=== PATIENT | female | born 1950 | race African-American/Black ===

== ENCOUNTER → 2020-04-13 | Outpatient (CLI) | payer MEDICARE, OTHER ==
--- NOTE | 2020-04-20 20:21 | RAD ---
DATE: 04/13/2020 EXAM: DIGITAL SCREEN BILAT W/CAD HISTORY: Screening COMPARISON: 03/24/2019, 11/05/2017 This study was interpreted with the benefit of Computerized Aided Detection (CAD). Breast Density: SCATTERED The breast parenchyma shows scattered fibroglandular densities. Breast parenchyma level B. FINDINGS: No suspicious mass, calcification, or architectural distortion in either breast. IMPRESSION: No evidence of malignancy. BI-RADS CATEGORY: 1 NEGATIVE RECOMMENDED FOLLOW-UP: 12M 12 MONTH FOLLOW-UP PQRS compliance statement: Patient information was entered into a reminder system with a target due date for the next mammogram. Mammography is a sensitive method for finding small breast cancers, but it does not detect them all and is not a substitute for careful clinical examination. A negative mammogram does not negate a clinically suspicious finding and should not result in delay in biopsying a clinically suspicious abnormality. "Our facility is accredited by the [employer] Mammography Program."
== END ==
LOC: MAMMO 09:03
PROVIDERS: ATTEND Family Medicine
DX: Z12.31 Encounter for screening mammogram for malignant neoplasm of breast (principal)
CPT/HCPCS: 77067

== ENCOUNTER → 2020-07-15 | Outpatient (CLI) | payer MEDICARE, OTHER ==
[~2020-07-15] MED LIST: IOHEXOL 350 MG/ML 100 ML VIAL. IV ONE
--- NOTE | 2020-07-15 08:33 | RAD ---
US BILATERAL LOWEREXTREMITY VENOUS DOPPLER History: Reason: BLE SWELLING, ELEVATED D-DIMER / Spl. Instructions: / History: Comparison: None. Discussion: Multiple longitudinal and transverse high resolution real-time images of the venous system of [facility] lower extremity were obtained with color and Doppler sampling. Degraded evaluation due to patient body habitus. Bilateral distal superficial femoral and calf veins not well seen. No definite deep vein thrombosis bilaterally. Impression: 1. Degraded evaluation. No definite evidence of deep vein thrombosis. Electronically signed by: Yomi Huntley DO (07/15/2020 8:30 AM) [id number]
--- NOTE | 2020-07-15 09:40 | RAD ---
Study: CT CHEST WITH CONTRAST - PULMONARY ANGIOGRAM History: Elevated d-dimer, dyspnea upon exertion Comparison: None Technique: Helical CT of the chest performed after the administration of intravenous contrast and ti med for angiographic evaluation of the pulmonary arteries per PE protocol. Coronal and sagittal 3D OR P reformations were obtained. One or more of the following individualized dose reduction techniques were utilized for this examinat ion: 1. Automated exposure control 2. Adjustment of the mA and/or kV according to patient size 3. Use of iterative reconstruction technique. Findings: Pulmonary Arteries: Contrast bolus is adequate. There is no acute pulmonary embolism. And pulmonary a rteries at its mildly enlarged.. Heart/Systemic Vasculature: The heart is normal in size. No pericardial effusion. Thoracic aorta is n ormal in caliber. There are coronary artery and aortic calcifications. Cannot evaluate the thoracic a kenneth for dissection due to phase of contrast. Mediastinum: There is no mediastinal or hilar lymphadenopathy. There are calcified subcarinal lymph n odes. Lungs: There are scattered pulmonary nodules. There is a 4 mm pulmonary nodule in the right upper lob e (image 55) there is a 3 mm subpleural pulmonary nodule in the right upper lobe (image 51). 3 mm pul monary nodule in the right middle lobe (image 62). There is a calcified granuloma in the left upper l obe. 4 mm pulmonary nodule in the left lower lobe (image 59). The lungs are otherwise clear. There is mild mosaic attenuation may indicate mild air trapping. No pleural effusion. The central airways are clear. Neck/Axilla/Body Wall: The thyroid gland is enlarged and there is a hypodense nodule involving the le ft thyroid lobe and isthmus measuring approximately 3.8 x 3.2 cm. No axillary lymphadenopathy. Visual ized portion of the breasts are symmetric in appearance. Upper Abdomen: There are surgical changes of cholecystectomy. Bones: No acute osseous abnormality. IMPRESSION: 1. No acute pulmonary embolism or other acute cardiac pulmonary abnormality. 2. Mildly enlarged main pulmonary artery, which can be seen with pulmonary arterial hypertension. Cor onary artery calcifications. 3. There are few small bilateral pulmonary nodules measuring up to 4 mm. In a high risk patient, opti onal twelve-month follow-up CT could be obtained to ensure stability per Fleischner Society guideline s. 4. Enlarged thyroid gland with 3.8 cm hypodense nodule involving the left thyroid lobe and isthmus. R ecommend dedicated thyroid ultrasound to further evaluate. Electronically signed by: Jamila Lowry MD (07/15/2020 9:38 AM) [id number]
== END ==
LOC: US 07:39
PROVIDERS: ATTEND Family Medicine
DX: R91.1 Solitary pulmonary nodule (principal); R79.1 Abnormal coagulation profile; I51.7 Cardiomegaly; E04.1 Nontoxic single thyroid nodule; Z90.49 Acquired absence of other specified parts of digestive tract
CPT/HCPCS: 71275; 93970; Q9967

== ENCOUNTER → 2020-08-11 | Outpatient (CLI) | payer MEDICARE ==
--- NOTE | 2020-08-11 08:32 | RAD ---
EXAMINATION: US THYROID INDICATION: 69 years, Female, thyroid nodule. COMPARISON: CT dated 07/15/2020 Technique: Real-time grayscale and color Doppler imaging of the thyroid gland was performed per lazara col. Findings: The right thyroid lobe measures: 4.5 x 1.8 x 1.6 cm. The left thyroid lobe measures: 6.2 x 3.0 x 3.2 cm. The isthmus measures: 1.5 cm. Estimated total number of nodules >/= 1cm: 2 Number of spongiform nodules >/= 2cm not described below (TR1): 0 Nodule #1: Maximum size: 4.3 cm Location: Mid/lower pole left thyroid lobe extends to the isthmus Composition: Solid or almost completely solid (2) Echogenicity: Hyperechoic or isoechoic (1 point) Shape: [id number] (0 points) Margins: Lobulated or irregular (2 points) Echogenic foci: None or large comet-tail artifacts (0 points) ACR TI-RADS total points: 5. ACR TI-RADS risk category: TR4 (4-6 points) - Moderately suspicious. FNA if ?1.5 cm. Follow if ?1 cm. Nodule #2: Maximum size: 1.6 cm Location: Mid/upper pole right thyroid lobe Composition: Solid or almost completely solid (2) Echogenicity: Hyperechoic or isoechoic (1 point) Shape: Nxhea-[id number]-[id number] (0 points) Margins: Ill-defined (0 points) Echogenic foci: None or large comet-tail artifacts (0 points) ACR TI-RADS total points: 3. ACR TI-RADS risk category: TR3 (3 points) - Mildly suspicious. FNA if ?2.5 cm. Follow if ?1.5 cm. IMPRESSION: 1. Left 4.3 cm solid thyroid nodule meets TI-RADS criteria for fine-needle aspiration. 2. The 1.6 cm mid/upper pole right thyroid lobe nodule meets TI-RADS criteria for follow-up in one ye ar. ACR TI-RADS recommendations TR5 (?7 points) - FNA if ? 1cm, follow-up if 0.5 - 0.9 cm every year for 5 years TR4 (4-6 points) - FNA if ? 1.5cm, follow-up if 1 - 1.4 cm in 1, 2, 3 and 5 years TR3 (3 points)- FNA if ? 2.5cm, follow-up if 1.5 - 2.4 cm in 1, 3 and 5 years TR2 (2 points) & TR1 (0 points) - No FNA or follow-up *Decision to biopsy should include other considerations such as patient demographics and relevant cli nical information. Reference: TIRADS 2017 J Am Dodie Radiol 2017;14:587-595 Electronically signed by: Ayden Lewis MD (08/11/2020 8:30 AM) [id number]
== END ==
LOC: US 07:45
PROVIDERS: ATTEND Family Medicine
DX: E04.1 Nontoxic single thyroid nodule (principal)
CPT/HCPCS: 76536

== ENCOUNTER → 2020-09-29 | Outpatient (CLI) | payer SELFPAY ==
[~2020-09-29] MED LIST changes: +CYCL-331 PO; -IOHEXOL 350 MG/ML 100 ML VIAL. IV ONE
--- NOTE | 2020-09-29 10:01 | RAD ---
US DPLX VENOUS EXTREMITY UPPER LT History: Reason: LEFT ARM SWELLING/ PAIN / Spl. Instructions: / History: Comparison: None. Procedure: Color flow Doppler, Doppler spectral analysis, and 2D images are obtained with and without compression in the jugular vein, subclavian vein, axillary vein, brachial vein, radial vein, ulnar v ein, and basilic and cephalic veins. Findings: Degraded evaluation due to patient body habitus and caliber of the venous system. Patent left interna l jugular, subclavian,, axillary, brachial, radial and ulnar veins. Patent cephalic and basilic vein. IMPRESSION: 1. No evidence of left upper extremity deep venous thrombosis. Electronically signed by: Yomi Huntley DO (09/29/2020 9:58 AM) [id number]
--- NOTE | 2020-09-29 11:14 | RAD ---
XR LUMBAR SPINE 4+V 09/29/2020 11:04 AM Indication: Spondylosis Comparison: None Technique: AP, oblique and lateral views of the lumbar spine, coned-down lateral view of the lumbosac ral junction Findings: There are 5 nonrib-bearing vertebral bodies in the lumbar spine. Vertebral body height and alignment are maintained. There is mild disc space narrowing at the L2-3 and L3-4 levels and there is mild to m oderate narrowing at the L4-5 and L5-S1 levels. There is minimal marginal osteophytosis. Mild degener ative facet disease at all lumbar levels of the lumbar spine and moderate changes at the L5-S1 level. The sacrum is intact. There are vascular calcifications in the abdomen and calcifications in the pel vis, also likely vascular. Impression: 1. No evidence of spondylolysis or spondylolisthesis. No acute osseous abnormality. 2. Degenerative disc and facet disease as described above. Electronically signed by: Rusty Knapp (09/29/2020 11:11 AM) [id number]
== END ==
LOC: RAD 09:16
PROVIDERS: ATTEND Family Medicine
DX: M51.37 Other intervertebral disc degeneration, lumbosacral region (principal); M47.817 Spondylosis without myelopathy or radiculopathy, lumbosacral region; M79.89 Other specified soft tissue disorders; M48.07 Spinal stenosis, lumbosacral region; M79.602 Pain in left arm
CPT/HCPCS: 72110; 93971

== ENCOUNTER 2020-10-02 17:13 | Emergency (ER) | payer MEDICARE, OTHER ==
[~2020-10-02] VITALS: Ht 160 cm; Wt 145.3 kg
[2020-10-02] MEDS ORDERED: IBUPROFEN 600 MG TABLET. PO ONE (17:45)
--- NOTE | 2020-10-02 18:25 | RAD ---
Exam: Lumbar spine 3 views INDICATION: Lower back pain, radiating into left hip TECHNIQUE: Frontal and lateral views of the lumbar spine with spot magnification view of the lumbosac ral joint Comparisons: None FINDINGS: Vertebral body heights and alignment are well-maintained. Degenerative disc disease at L4-L5 and L5-S1. Bilateral facet arthropathy is noted in the lower lumba r spine. Visualized paraspinal soft tissues are unremarkable. IMPRESSION: Spondylotic changes lumbar spine as described above. Electronically signed by: Chris Lopez MD (10/02/2020 6:22 PM) [id number]
[2020-10-02] MEDS ORDERED: CYCL-331 PO (18:26)
[2020-10-02 18:30] VITALS: BP 193/98
[2020-10-02] MEDS ORDERED: LIDOCAINE (700MG/PATCH) PATCH. TD ONE (18:30)
--- NOTE | 2020-10-02 18:31 | PHYS DOC ---
General Adult EDM: Chief Complaint: BACK PAIN OR INJURY HPI: HPI: Patient is a 69-year-old female who presents with lower back pain. Patient states that she was just seen by her PCP and had imaging of lower back and her left arm. Patient states she was diagnosed with arthritis. Patient is being seen today for pain control. Patient states that she is taking at 1000 mg of Tylenol 3 times a day without any relief. Patient states that she sneezed earlier today and that is what caused her lower back pain to be exacerbated. (NORMA LOCKWOOD APRN) Review of Systems: Review of Systems: Constitutional: Denies fever or chills Eyes: Denies change in visual acuity HENT: Denies nasal congestion or sore throat Respiratory: Denies cough or shortness of breath Cardiovascular: Denies chest pain or edema GI: Denies abdominal pain, nausea, vomiting, bloody stools or diarrhea : Denies dysuria Musculoskeletal: Reports lower back pain Integument: Denies rash Neurologic: Denies headache, focal weakness or sensory changes Endocrine: Denies polyuria or polydipsia Lymphatic: Denies swollen glands Psychiatric: Denies depression or anxiety (NORMA LOCKWOOD APRN) Current Medications: Current Meds: Current Medications Medications (Trade) Dose Ordered Sig/Barbi Start Time Stop Time Status Last Admin Dose Admin Ibuprofen (Motrin) 600 mg 1X ONCE 10/02/20 17:45 10/02/20 17:47 DC (NORMA LOCKWOOD APRN) Allergies: Allergies: Allergies Coded Allergies Type Severity Reaction Last Updated Verified No Known Drug Allergies 07/15/20 No (NORMA LOCKWOOD APRN) Physical Exam: PE: Constitutional: Well developed, well nourished, no acute distress, non-toxic appearance. [] HENT: Normocephalic, atraumatic, bilateral external ears normal, oropharynx moist, no oral exudates, nose normal. [] Eyes: PERRLA, EOMI, conjunctiva normal, no discharge. [] Neck: Normal range of motion, no tenderness, supple, no stridor. [] Cardiovascular:Heart rate regular rhythm, no murmur [] Lungs & Thorax: Bilateral breath sounds clear to auscultation [] Abdomen: Bowel sounds normal, soft, no tenderness, no masses, no pulsatile masses. [] Skin: Warm, dry, no erythema, no rash. [] Back: Low back tenderness, no CVA tenderness. [] Extremities: No tenderness, no cyanosis, no clubbing, ROM intact, no edema. [] Neurologic: Alert and oriented X 3, normal motor function, normal sensory function, no focal deficits noted. [] Psychologic: Affect normal, judgement normal, mood normal. [] (NORMA LOCKWOOD APRN) EKG: EKG: [] (NORMA LOCKWOOD APRN) Radiology/Procedures: Radiology/Procedures: [] (NORMA LOCKWOOD APRN) Heart Score: C/O Chest Pain: No Risk Factors: Risk Factors: DM, Current or recent (<one month) smoker, HTN, HLP, family histo ry of CAD, obesity. Risk Scores: Score 0 - 3: 2.5% MACE over next 6 weeks - Discharge Home Score 4 - 6: 20.3% MACE over next 6 weeks - Admit for Clinical Observation Score 7 - 10: 72.7% MACE over next 6 weeks - Early Invasive Strategies (NORMA LOCKWOOD APRN) Course & Med Decision Making: Course & Med Decision Making Pertinent Labs and Imaging studies reviewed. (See chart for details) [] 69-year-old female presents with chronic lower back pain. Patient was seen by her PCP earlier this week and had imaging of her lower back and right arm. Patient also had an ultrasound of her right arm which was negative for any clots. Lower back x-ray showed arthritis. Patient's been taking Tylenol 3 kassandra es a day with no relief. Patient is requesting pain medication but drove to the ER by herself. I am giving her 600 mg of ibuprofen at home with a prescription for Flexeril. (NORMA LOCKWOOD APRN) Course & Med Decision Making Did not see or evaluate patient. Agree with [employer] ARCHITECT's work-up and disposition per note. (ANKITA STEWART MD) Dragon Disclaimer: Dragon Disclaimer: This electronic medical record was generated, in whole or in part, using a voice recognition dictation system. (NORMA LOCKWOOD APRN) Departure Departure: Impression: Primary Impression: Back pain Qualified Codes: M54.5 - Low back pain; G89.29 - Other chronic pain Additional Impression: Arthritis Disposition: HOME / SELF CARE / HOMELESS Condition: STABLE Referrals: ARLEY PEREZ MD (PCP) Patient Instructions: Arthritis, Nonspecific, Back Pain, Adult, [id number] Additional Instructions: You were seen in the emergency room for low back pain after you sneezed. You were seen earlier this week by your PCP and diagnosed with arthritis. You were given a lidocaine patch, 600 mg of ibuprofen at home and Flexeril to take at home. Please call your PCP make a follow-up appointment for further pain management options. Return to emergency room if you have worsening symptoms or concerns EMERGENCY DEPARTMENT GENERAL DISCHARGE INSTRUCTIONS Thank you for coming to [facility] (ED) today and trusting us with you care. We trust that you had a positivie experience in our Emergency Department. If you wish to speak to the department management, you may call the director at [phone]. YOUR FOLLOW UP INSTRUCTIONS ARE FOLLOWS: 1. Do you have a private Doctor? If you do not have a private doctor, please ask for a resource list of physicians or clinics that may be able to assist you with follow up care. 2. The Emergency Physician has interpreted your x-rays. The X-Ray specialist will also review them. If there is a change in the findings, you will be notified in 48 hours when at all possible. 3. A lab test or culture has been done, your results will be reviewed and you will be notified if you need a change in treatment. ADDITIONAL INSTRUCTIONS AND INFORMATION: 1. Your care today has been supervised by a physician who is specially trained in emergency care. Many problems require more than one evaluation for a complete diagnosis and treatment. We recommend that you schedule your follow up appointment as recommended to ensure complete treatment of you illness or injury. If you are unable to obtain follow up care and continue to have a problem, or if your condition worsens, we recommend that you return to the ED. 2. We are not able to safely determine your condition over the phone nor are we able to give sound medical advice over the phone. For these safety reasons, if you call for medical advice we will ask you to come to the ED for further evaluation. 3. If you have any questions regarding these discharge instructions please call the ED at [phone]. SAFETY INFORMATION: In the interest of safety, wellness, and injury prevention; we encourage you to wear your sealbelt, if you smoke; quite smoking, and we encourage family to use a protective helmet for bicycling and other sporting events that present an increased risk for head injury. IF YOUR SYMPTOMS WORSEN OR NEW SYMPTOMS DEVELOP, OR YOU HAVE CONCERNS ABOUT YOUR CONDITION; OR IF YOUR CONDITION WORSENS WHILE YOU ARE WAITING FOR YOUR FOLLOW UP APPOINTMENT; EITHER CONTACT YOUR PRIMARY CARE DOCTOR, THE PHYSICIAN WHOSE NAME AND NUMBER YOU WERE GIVEN, OR RETURN TO THE ED IMMEDIATELY. Scripts Cyclobenzaprine Hcl (CYCLOBENZAPRINE HCL) 10 Mg Tablet 1 TAB PO TID for pain for 10 Days, #30 TAB Prov: NORMA LOCKWOOD APRN 10/02/20 NORMA LOCKWOOD APRN Oct 02, 2020 18:31 ANKITA STEWART MD Oct 02, 2020 23:48
[2020-10-03] MEDS ORDERED: PATCH REMOVAL. MC SCH (06:30)
== END 2020-10-02 18:50 | disposition home or self-care (01) ==
LOC: ER 17:13
DX: M54.5 Low back pain (principal); G89.29 Other chronic pain; M19.90 Unspecified osteoarthritis, unspecified site
CPT/HCPCS: 72100; 99283